=== PATIENT | female | born 1995 | race Caucasian/White ===

== ENCOUNTER 2018-07-08 17:00 | Emergency (ER) | payer BC ==
--- NOTE | 2018-07-13 13:20 | EDM.PDOC ---
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 She does have her menstruation and she reports it happened shortly after removing and reinserting a new tampon. Sexual history indicates single partner with use of condoms every time per her report. She has no other urinary history, no vaginal drainage, soreness, itching, or unusual odor. No personal history of any STI's. Onset: Today, Sudden Location: Reports: Pelvis (right labia) Quality: Reports: Sharp Severity: Mild Improves with: Reports: None Worsens with: Reports: None Associated Symptoms: Reports: No Other Symptoms Perineal Area Pain Score (Numeric/FACES): 3 - Related Data Allergies Allergy/AdvReac Type Severity Reaction Status Date / Time No Known Allergies Allergy Verified 07/08/18 18:50 Home Meds: Home Meds . [No Known Home Meds] 07/08/18 [History] Past Medical History - Past Health History Medical/Surgical History: Denies Medical/Surgical History Social & Family History - Tobacco Use Smoking Status *Q: Never Smoker ED ROS GENERAL - Review of Systems Review Of Systems: See Below Constitutional: Reports: No Symptoms HEENT: Reports: No Symptoms Respiratory: Reports: No Symptoms Cardiovascular: Reports: No Symptoms Endocrine: Reports: No Symptoms GI/Abdominal: Reports: No Symptoms : Reports: Other (menses) Musculoskeletal: Reports: No Symptoms Skin: Reports: Other (swelling to right labia) Neurological: Reports: No Symptoms Psychiatric: Reports: No Symptoms Hematologic/Lymphatic: Reports: No Symptoms Immunologic: Reports: No Symptoms ED EXAM, SKIN/RASH Exam: See Below Exam Limited By: No Limitations General Appearance: Alert, WD/WN, No Apparent Distress Respiratory/Chest: No Respiratory Distress, Lungs Clear, Normal Breath Sounds, No Accessory Muscle Use, Chest Non-Tender Cardiovascular: Normal Peripheral Pulses, Regular Rate, Rhythm, No Edema, No Gallop, No JVD, No Murmur, No Rub GI/Abdominal: Normal Bowel Sounds, Soft, Non-Tender, No Organomegaly, No Distention, No Abnormal Bruit, No Mass (Female) Exam: Vaginal Bleeding, Other (labial tear) Rectal (Female) Exam: Deferred Back Exam: Normal Inspection, Full Range of Motion, NT Extremities: Normal Inspection, Normal Range of Motion, Non-Tender, No Pedal Edema, Normal Capillary Refill Neurological: Alert, Oriented, CN II-XII Intact, Normal Cognition, Normal Gait, Normal Reflexes, No Motor/Sensory Deficits Skin: Wound/Incision (small 0.5 cm laceration to right labial fold) Location, Skin: Genital Associated features: Swelling Course - Vital Signs Last Recorded V/S: Last Vital Signs Temp 36.9 C 07/08/18 17:05 Pulse 79 07/08/18 17:05 Resp 16 07/08/18 17:05 BP 139/78 07/08/18 17:05 Pulse Ox 99 07/08/18 17:05 Departure - Departure Time of Disposition: 17:30 Disposition: Home, Self-Care 01 Condition: Good Clinical Impression: Labial abrasion - Discharge Information *PRESCRIPTION DRUG MONITORING PROGRAM REVIEWED*: Not Applicable *COPY OF PRESCRIPTION DRUG MONITORING REPORT IN PATIENT JOAO: Not Applicable Referrals: PCP,Unknown [Primary Care Provider] - Forms: ED Department Discharge - Problem List & Annotations (1) Labial abrasion SNOMED Code(s): 74680817 Code(s): S30.814A - ABRASION OF VAGINA AND VULVA, INITIAL ENCOUNTER Status : Acute Priority: Low Qualifiers: Encounter type: initial encounter Qualified Code(s): S30.814A - Abrasion of vagina and vulva, initial encounter - Problem List Review Problem List Initiated/Reviewed/Updated: Yes - Assessment/Plan Assessment:: labial abrasion Plan: Follow up with primary care as appropriate. Use caution when removing and inserting tampons in the future. Use tylenol or ibuprofen for pain control. Please call the ER with any additional questions or concerns.
== END 2018-07-08 17:30 | disposition home or self-care (01) ==
LOC: VM.ED 17:00
DX: S30.814A Abrasion of vagina and vulva, initial encounter (principal); W22.8XXA Striking against or struck by other objects, initial encounter
CPT/HCPCS: 99283